=== PATIENT | female | born 1980 | race Caucasian/White ===

== ENCOUNTER → 2017-03-10 | Outpatient (CLI) | payer BC, OTHER ==
[~2017-03-10] MED LIST: PRENTAB26 PO
[2017-03-10 15:02] LABS: URINE APPEARANCE CLEAR (CLEAR); URINE BILIRUBIN NEG (NEG); URINE COLOR YELLOW; URINE EPITHELIAL CELL AUTO >30 /lpf (0-5); URINE NITRITE NEG (NEG); URINE SPECIFIC GRAVITY 1.013 (1.000-1.030); UROBILINOGEN NEG (NEG)
[2017-03-10 15:08] LABS: MANUAL MICROSCOPIC REQUIRED? NO; REVIEW REQ? NO
== END | disposition home or self-care (01) ==
LOC: C.LABSPEC 13:42
PROVIDERS: ATTEND Obstetrics & Gynecology
DX: O09.523 Supervision of elderly multigravida, third trimester (principal)

== ENCOUNTER → 2017-04-09 | Outpatient (CLI) | payer BC, OTHER | END | disposition home or self-care (01) | LOC: C.LABSPEC 16:15 | PROVIDERS: ATTEND Obstetrics & Gynecology | DX: O09.523 Supervision of elderly multigravida, third trimester (principal) ==

== ENCOUNTER → 2017-04-09 | Outpatient (CLI) | payer BC, OTHER ==
[2017-04-09 13:26] LABS: HEMATOCRIT 35.1 % (37-47)
== END | disposition home or self-care (01) ==
LOC: C.LAB1850 12:11
PROVIDERS: ATTEND Obstetrics & Gynecology
DX: O09.523 Supervision of elderly multigravida, third trimester (principal)

== ENCOUNTER 2017-04-29 11:28 | Inpatient (IN) | payer BC, OTHER ==
[~2017-04-29] VITALS: Ht 175.3 cm; Wt 91.8 kg
[2017-04-29] MEDS ORDERED: LACTATED RINGER'S 1000ML 1,000 ML IV PRN (12:03)
[2017-04-29] MEDS ORDERED: LACTATED RINGER'S 1000ML 1,000 ML IV SCH (12:03)
[2017-04-29] MEDS ORDERED: BUPIVACAINE 0.25% 30 ML VIAL ONE (12:46)
[2017-04-29] MEDS ORDERED: FENTANYL 2MCG/ML ROPIV 1.25MG/ML 100ML BAG EPI ONE (12:47)
[2017-04-29] MEDS ORDERED: EpHEDrine SULFATE INJ 50 MG/ML AMP ONE (12:47)
[2017-04-29] MEDS ORDERED: FENTANYL CITRATE INJ 50 MCG/1 ML 2 ML VIAL ONE (12:48)
[2017-04-29 12:49] LABS: HEMATOCRIT 34.7 % (37-47); MEAN CELL VOLUME 83.2 fL (80-100); MEAN CORPUSCULAR HEMOGLOBIN 27.6 pg (25-34); MEAN CORPUSCULAR HGB CONC 33.1 g/dl (32-36); MEAN PLATELET VOLUME 11.1 fL (7.4-10.4); PLATELET COUNT 199 K/uL (130-400); RED BLOOD COUNT 4.17 M/uL (4.2-5.4); WHITE BLOOD COUNT 10.34 K/uL (4.8-10.8)
[2017-04-29] MEDS ORDERED: OXYTOCIN 30 UNITS/500ML NSS IV ONE (12:49)
[2017-04-29] MEDS ORDERED: LACTATED RINGER'S 1000ML 500 ML IV PRN (12:57)
[2017-04-29] MEDS ORDERED: NALOXONE HCL INJ 1 MG in SODIUM CHLORIDE 0.9% 1000ML 1,000 ML IV PRN (12:57)
[2017-04-29] MEDS ORDERED: NALOXONE HCL INJ 0.4 MG/1 ML VIAL/CARP IV PRN (13:00)
[2017-04-29] MEDS ORDERED: FENTANYL 2MCG/ML ROPIV 1.25MG/ML 100ML BAG EPI PRN (13:00)
[2017-04-29] MEDS ORDERED: ONDANSETRON INJ 2 MG/ML 2 ML VIAL IV PRN (13:00)
[2017-04-29] MEDS ORDERED: EpHEDrine SULFATE INJ 50 MG/ML AMP IV PRN (13:00)
[2017-04-29] MEDS ORDERED: DiphenhydrAMINE HCL 50 MG/ML VIAL IV PRN (13:00)
[2017-04-29] MEDS ORDERED: NALBUPHINE HCL INJ 10 MG/ML AMP IV PRN (13:00)
[2017-04-29] MEDS ORDERED: SUPERCREAM 0.870 % 15GM JAR EXT PRN (13:45)
[2017-04-29] MEDS ORDERED: BENZOCAINE 20% AER SPR 82.5 GM CAN EXT PRN (13:45)
[2017-04-29] MEDS ORDERED: OXYTOCIN 30 UNITS/500ML NSS IV PRN (13:45)
[2017-04-29] MEDS ORDERED: DIPHTHERIA/TETANUS/PERTUSSIS 0.5 ML SYR/VIAL IM. ONE (13:45)
[2017-04-29] MEDS ORDERED: LANOLIN OINT EXT PRN ×2 (13:45)
[2017-04-29] MEDS ORDERED: ACETAMINOPHEN/CODEINE 300/30MG TAB PO PRN ×2 (13:45)
[2017-04-29] MEDS ORDERED: ACETAMINOPHEN 325 MG TAB PO PRN (13:45)
[2017-04-29] MEDS ORDERED: HYDROCORTISONE ACETATE 25 MG SUPP PR PRN (13:45)
--- NOTE | 2017-04-29 14:06 | DELIVERY SUMMARY ---
DATE OF OPERATION: 04/29/2017 DELIVERY NOTE DATE OF DELIVERY: 04/29/2017. FINDINGS: Viable female with Apgars of 8 and 9. Baby delivered spontaneously over an intact perineum. Cord blood samples obtained. Placenta delivered spontaneously. Estimated blood loss 300 mL. LABOR NOTE: The patient is a 36-year-old 5, para 4 with an EDC of 03 May at 39+ weeks gestational age who presented to labor and delivery from the office with spontaneous rupture of membranes. The patient states she had been having some contractions mild prior to her visit. She started leaking fluid at the visit and was sent to [facility] for evaluation. The patient's course remarkable for declining any evaluation for advanced maternal age. Laboratory values showed a blood type of 0 positive, antibody negative, rubella immune, hepatitis B negative. She declined any 1-hour Glucola stating that she had checked her sugars at home and that they were "normal". She had a negative third trimester beta strep culture. On admission patient was 4-5 cm dilated, 80% efface and -2 station. There was gross rupture but a forebag was palpated and this was also ruptured for clear fluid. Tracing was category 1. Contractions were regular. Anesthesia was consulted and an epidural was placed. Shortly after completion of the epidural the patient was examined and was fully dilated. The patient pushed 1 time and delivered the viable female over an intact perineum. Cord blood samples obtained. Placenta delivered spontaneously. Inspection of the perineum showed no lacerations. Estimated blood loss 300 mL. Sponge and needle count was correct. I attest to the content of the Intraoperative Record and any orders documented therein. Any exceptio ns are noted below.
[2017-04-29] MEDS: IBUPROFEN 600 MG TAB PO PRN ×2 (15:56→20:11)
--- NOTE | 2017-04-29 16:13 | Anesthesia Procedure Note ---
Anesthesia Epidural Removal Nt Date & Time April 29, 2017 at 16:13 Vital Signs Pain Intensity: 3.0 Notes Mental Status: alert / awake / arousable, participated in evaluation Nausea / Vomiting: adequately controlled Pain: adequately controlled Airway Patency, RR, SpO2: stable & adequate BP & HR: stable & adequate Hydration State: stable & adequate Neuraxial Anesthesia: was administered, sensory block is resolving Anesthetic Complications: no major complications apparent, pt satisfied with anesthetic care Epidural: removed without complications, with tip intact
[2017-04-29 17:25] VITALS: BP 135/83; PULSE 70; TEMP 36.7; O2SAT 99
[2017-04-29 17:42] VITALS: Ht 175.3 cm; Wt 91.8 kg
[2017-04-29] MEDS ORDERED: PRENTAB26 PO (17:46)
[2017-04-29 20:00] VITALS: BP 129/84; PULSE 65; TEMP 36.5; O2SAT 100
[2017-04-29] MEDS: DOCUSATE SODIUM 100 MG CAP PO SCH (20:12)
[2017-04-29 23:10] VITALS: BP 138/86; PULSE 54; TEMP 36.4; O2SAT 100
[2017-04-30] MEDS: IBUPROFEN 600 MG TAB PO PRN ×2 (02:40→08:04)
[2017-04-30 04:30] VITALS: BP 113/66; PULSE 74; TEMP 36.6; O2SAT 98
--- NOTE | 2017-04-30 06:47 | Progress Note ---
Subjective April 30, 2017. Subjective conversation w/ patient, physical exam Ambulation: ambulating normally Feeding Type: Breast Feeding Objective Vital Signs Date Time Temp Pulse Resp B/P Pulse Ox O2 Delivery O2 Flow Rate FiO2 04/30/17 04:30 36.6 74 16 113/66 98 Room Air 04/29/17 23:10 100 Room Air 04/29/17 23:10 36.4 54 18 138/86 100 Room Air 04/29/17 20:00 36.5 65 18 129/84 100 Room Air 04/29/17 17:25 36.7 70 16 135/83 99 Room Air Physical Exam General Appearance: WELL-APPEARING, NO APPARENT DISTRESS Fundus: Firm, Non-Tender Extremities: no calf tenderness Laboratory Results Last 24 Hours Test 04/29/17 12:26 04/29/17 18:15 04/30/17 04:44 White Blood Count 10.34 K/uL Red Blood Count 4.17 M/uL Hemoglobin 11.5 g/dL Hematocrit 34.7 % Mean Corpuscular Volume 83.2 fL Mean Corpuscular Hemoglobin 27.6 pg Mean Corpuscular Hemoglobin Concent 33.1 g/dl RDW Standard Deviation 39.2 fL RDW Coefficient of Variation 13.1 % Platelet Count 199 K/uL Mean Platelet Volume 11.1 fL Assessment and Plan Post- Day#: 1 Continue Routine Care: - doing well - desires d/c - instructions given - f/u in 6 weeks
--- NOTE | 2017-04-30 06:48 | Discharge Instructions ---
Discharge Instructions Date of Service April 30, 2017. Admission Reason for Admission: Spontaneous Rupture Of Membranes Discharge Discharge Diagnosis / Problem: same Discharge Goals Goal(s): Routine recovery after delivery Medications Continue Dispensed Medications: supercream, dermaplast Activity Recommendations Activity Limitations: as noted below . Instructions / Follow-Up Instructions / Follow-Up ACTIVITY RECOMMENDATIONS: * Gradual return to full activity over the next 2-3 weeks. * No lifting - nothing heavier than baby over the next 2-3 weeks. * Do not engage in vigorous exercise, sexual activity or sports until cleared by your physician. * Do not drive or operate any motorized equipment until cleared by your physician. * You may shower/bathe daily. MEDICATIONS: For discomfort or pain, you may use Acetaminophen (Tylenol), Ibuprofen (Advil), or Naproxen (Aleve) following the package directions. For constipation you may use Colace following the package directions. BREAST CARE: If you are not breast feeding: * Wear a supportive bra 24 hours a day for one to two weeks. * Avoid stimulating your breasts and nipples as much as possible during the first few weeks after delivery. * When taking a shower, have the warm water hit your back, not breasts. * When your breasts feel full, apply ice packs. Usually three to four times a day helps ease the discomfort. * Take a mild pain medication (Tylenol / Motrin) when you are uncomfortable. If breast feeding: * Use breast milk to lubricate nipples. Lansinoh cream may be used for sore nipples. You do not need to remove cream prior to breast feeding. If using a different brand of cream, check the label for directions regarding removal of cream prior to nursing. * Wear a supportive bra. * If having problems with breasts or breast feeding, call a small business consultant or your health care provider. EPISIOTOMY CARE: After delivery, if you have an episiotomy (stitches), the following steps will ease discomfort and aid healing. * For the first 24 hours after delivery, place ice packs next to your episiotomy to help reduce swelling. * After the first 24 hour-period, sitz baths, either portable or in the tub, are suggested. A shower with a shower arm sprayed over the episiotomy may be comforting. * Shabana care should be done after each voiding and bowel movement. Squirt warm water from a plastic bottle over the perineum (region of the body between the anus and urinary opening) and pat dry. * Use Dermoplast to ease discomfort. Shake container. [place]kinson directly over the episiotomy. Place a Tucks on a clean sanitary pad next to your episiotomy. SPECIAL CARE INSTRUCTIONS: When you are discharged from the hospital, it is important for you to follow the instructions listed below: * During the first week at home, you should be able to care for yourself and your baby. In addition, the usual light household activities are encouraged. * Limit your activities to the way you feel. Do not try to clean the house or move furniture. Be sensible. * If you actively engage in sports and have done so up until the time of your delivery, you may resume these activities as soon as you feel able. This may take up to one month or even longer. Use good judgment. * Continue to take your vitamins for at least six weeks after the of your baby. * Your diet need not be limited unless you were on a special diet before your delivery. Breast-feeding mothers need around 2500 calories per day and at least 64-80 ounces of fluid per day (8 to 10 glasses). * You should eat foods from the four major food groups. Crash diets or fad diets are to be avoided. Eating lean meats, fresh fruits and vegetables, low-fat dairy products, high fiber foods and a regular exercise program, will help you get back to your pre- weight without putting your health at risk. * Constipation is sometimes a problem after delivery. Take a mild laxative as needed. If breast feeding, Milk of Magnesia is acceptable to use. You may use a suppository or Fleets enema if no episiotomy. * A daily shower or tub bath is suggested. Be sure to thoroughly and gently dry the perineum. * A bloody vaginal discharge will usually continue until around four weeks post . A small amount of bleeding may continue for as long as six weeks. Vaginal discharge changes from the bright red bleeding after delivery to pink then brownish and finally yellowish-pink before becoming white and disappearing. * Bleeding may increase with activity. Your first period may come in 4-8 weeks. If you are breast feeding, your period may be delayed even longer. * [place] (sex) can begin whenever both you and your partner feel comfortable and do not have any form of genital infection. It is recommended that you wait at least six weeks for internal and external healing to occur. If you have questions, please talk to your health care practitioner. A condom should be used to prevent infection and . * Foreplay, gentle intercourse and lubrication is very important the first several times to prevent pain. A water-based lubricant such as K-Y jelly or Astroglide may be used. * If you have RH negative blood and your baby is RH positive, you will receive RHOGAM by injection prior to discharge. The nurse will give you a card to keep with you that has the date and place that you received RHOGAM after delivery. * During your care, you had a Rubella screen done to check for the presence of rubella antibodies in your blood. If your test was negative, you will receive a Rubella vaccine prior to discharge. This vaccine may cause a fever, soreness at the injection site and flu-like symptoms. If these symptoms persist, notify your health care practitioner. is not advised for one month after a Rubella vaccine. * Verbalizes understanding of car seat law as reviewed with patient nursing. * Car Seat hand-out given and reviewed with patient by nursing. * Shaken baby information reviewed with patient by nursing. Call you doctor if: * Heavy bleeding (saturating several pads an hour) or passing clots the size of your fist. * A fever >101 degrees F (38.3 degrees C) on two occasions four hours apart and /or chills. * Unusual pain in the pelvic or vaginal areas. * "Baby Blues" lasting longer than two weeks. If you have any questions or concerns, call your health care practitioner at . FOLLOW UP VISIT: * Please call the office at to schedule a 6 week examination. It is important you keep this appointment. It is important for you to make arrangements for either yearly or twice yearly check-ups thereafter. Current Hospital Diet Patient's current hospital diet: Regular OB Diet Discharge Diet Recommended Diet: Regular OB Diet Pending Studies Studies pending at discharge: no Medical Emergencies . Who to Call and When: Medical Emergencies: If at any time you feel your situation is an emergency, please call 911 immediately. . Non-Emergent Contact Non-Emergency issues call your: Model Engine Mechanic Call Non-Emergent contact if: you have a fever, temperature is above 100.5 . . "Provider Documentation" section prepared by Javed Herrera. . VTE Core Measure Inpt VTE Proph given/why not?: Treatment not indicated
[2017-04-30] MEDS ORDERED: FERROUS SULFATE 325 MG TAB PO SCH (08:00)
[2017-04-30] MEDS ORDERED: PRENATAL VITAMIN TAB PO SCH (08:00)
[2017-04-30] MEDS: DOCUSATE SODIUM 100 MG CAP PO SCH (08:01)
[2017-04-30 08:19] VITALS: BP 129/80; PULSE 69; TEMP 36.5; O2SAT 100
[2017-04-30 12:14] VITALS: BP 117/76; PULSE 88; TEMP 36.7; O2SAT 98
[2017-04-30 14:06] VITALS: BP_DIAS 76; PULSE 88; TEMP 36.7
[2017-04-30] MEDS ORDERED: BISACODYL 5 MG TABEC PO SCH (20:00)
== END 2017-04-30 14:29 | disposition home or self-care (01) | DRG 775 ==
LOC: C.LD 11:28 → C.OPB 11:28 → C.LD 12:04 → C.OPB 12:04 → C.OBG 17:33
PROVIDERS: ADMIT Obstetrics & Gynecology; ATTEND Obstetrics & Gynecology
PROC: 10E0XZZ Delivery of Products of Conception, External Approach (ICD-10-PCS; principal; 2017-04-29)
DX: O80 Encounter for full-term uncomplicated delivery (principal); Z3A.39 39 weeks gestation of pregnancy; Z37.0 Single live birth